=== PATIENT | male | born 1975 | race Caucasian/White ===

== ENCOUNTER 2017-04-20 13:49 | Emergency (ER) | payer SELFPAY ==
[~2017-04-20] VITALS: Ht 162.6 cm; Wt 89.1 kg
[~2017-04-20 13:49] MED LIST: DIVA500T2 PO; LEVE500T53 PO
[2017-04-20 13:51] VITALS: BP 146/104
== END 2017-04-20 14:58 | disposition home or self-care (01) ==
LOC: ED 14:52
DX: H66.91 Otitis media, unspecified, right ear (principal); F17.210 Nicotine dependence, cigarettes, uncomplicated
CPT/HCPCS: 99283